=== PATIENT | female | born 1975 | race Caucasian/White ===

== ENCOUNTER 2019-11-27 08:39 | Inpatient (IN) | payer MEDICAID ==
[~2019-11-27] VITALS: Ht 162.6 cm; Wt 93.0 kg
[~2019-11-27 08:39] MED LIST: KEPP500 PO; NITR100C11 PO; PHEN100C12 PO
[2019-11-27] MEDS ORDERED: ONDANSETRON HCL 4MG/2ML INJ IV STA (09:10)
[2019-11-27] MEDS ORDERED: SODIUM CHLORIDE 0.9% 1,000 ML IV ONE (09:10)
[2019-11-27] MEDS ORDERED: FAMOTIDINE 20MG/2ML VIAL IV STA (09:10)
[2019-11-27] MEDS ORDERED: MORPHINE SULFATE 4 MG/ML CPJ (NOT FOR IM USE) IV STA (09:10)
[2019-11-27 09:40] LABS: BASOPHILS % 0.7 % (0.0-2.0); EOSINOPHILS % 3.5 % (0.0-5.0); HEMOGLOBIN. 13.2 g/dL (12.0-16.0); LYMPHOCYTES % 20.8 % (20.0-50.0); MEAN CORPUSCULAR HEMOGLOBIN 30.2 pg (28.0-32.0); MEAN CORPUSCULAR VOLUME 91.7 fL (81.0-99.0); MEAN PLATELET VOLUME 8.8 fl (7.4-10.4); MONOCYTES % 8.4 % (2.0-8.0); NEUTROPHILS % 66.6 % (40.0-76.0); PLATELET 174 x1000/uL (130-400); RED BLOOD CELL COUNT 4.36 mill/uL (4.2-5.4)
[2019-11-27 09:45] LABS: CHLORIDE 110 mEq/L (98-107)
[2019-11-27 09:48] LABS: PROTHROMBIN TIME 10.2 sec (9.6-11.0)
[2019-11-27 10:27] LABS: HCG SCREEN INDETERMINATE
[2019-11-27 11:19] LABS: CLARITY URINE CLEAR (CLEAR); COLOR URINE YELLOW (YELLOW); KETONES URINE NEGATIVE (NEGATIVE); LEUKOCYTE ESTERASE URINE NEGATIVE (NEGATIVE); NITRITE URINE NEGATIVE (NEGATIVE); OCCULT BLOOD URINE NEGATIVE (NEGATIVE); PROTEIN URINE NEGATIVE (NEGATIVE); SPECIFIC GRAVITY URINE 1.013 (1.005-1.030); UROBILINOGEN URINE 0.2 E.U./dL (0.2-1.0)
[2019-11-27] MEDS ORDERED: PIPERACILLIN/TAZ 3.375G PREMIX 50 ML IV ONE (12:15)
[2019-11-27] MEDS ORDERED: DOCUSATE SODIUM 250MG CAPSULE PO PRN (22:00)
[2019-11-27] MEDS: SODIUM CHLORIDE 0.9% 1,000 ML IV SCH (22:00)
[2019-11-27] MEDS ORDERED: ONDANSETRON HCL 4MG/2ML INJ IV PRN (22:00)
[2019-11-27] MEDS: PHENYTOIN SODIUM EXTENDED 100MG CAPSULE PO SCH (22:33)
[2019-11-27] MEDS: LEVETIRACETAM 500MG TABLET PO SCH (22:33)
[2019-11-28] VITALS (7 sets, daily range): BP systolic 119–135; BP diastolic 53–85
[2019-11-28] MEDS ORDERED: PIPERACILLIN/TAZ 3.375G PREMIX 50 ML IV SCH (02:00)
[2019-11-28] MEDS: PIPERACILLIN/TAZOBACTAM 3.375 G in DEXT 5% WATER 100 ML IV SCH ×3 (02:01→17:57)
[2019-11-28] MEDS: MORPHINE SULFATE 2 MG/ML CPJ (NOT FOR IM USE) IV PRN (05:50)
[2019-11-28] MEDS ORDERED: PIPERACILLIN/TAZOBACTAM 3.375 G/VIAL IV SCH (06:00)
[2019-11-28 06:46] LABS: BASOPHILS % 0.9 % (0.0-2.0); EOSINOPHILS % 4.2 % (0.0-5.0); HEMATOCRIT. 39.1 % (36.0-48.0); HEMOGLOBIN. 12.9 g/dL (12.0-16.0); LYMPHOCYTES % 29.6 % (20.0-50.0); MEAN CORPUSCULAR HEMOGLOBIN 30.2 pg (28.0-32.0); MEAN CORPUSCULAR VOLUME 91.5 fL (81.0-99.0); MEAN PLATELET VOLUME 9.3 fl (7.4-10.4); MONOCYTES % 9.6 % (2.0-8.0); NEUTROPHILS % 55.7 % (40.0-76.0); PLATELET 169 x1000/uL (130-400); RED BLOOD CELL COUNT 4.27 mill/uL (4.2-5.4); RED CELL DISTRIBUTION WIDTH 14.9 % (11.6-14.6)
[2019-11-28] MEDS: PHENYTOIN SODIUM EXTENDED 100MG CAPSULE PO SCH ×2 (09:20→17:57)
[2019-11-28] MEDS: LEVETIRACETAM 500MG TABLET PO SCH ×2 (09:21→17:57)
[2019-11-28] MEDS: SODIUM CHLORIDE 0.9% 1,000 ML IV SCH (18:34)
[2019-11-29] VITALS: BP 134/70
[2019-11-29 04:00] VITALS: BP 113/60
[2019-11-29] MEDS: PIPERACILLIN/TAZOBACTAM 3.375 G in DEXT 5% WATER 100 ML IV SCH ×2 (04:12→09:11)
[2019-11-29] MEDS: SODIUM CHLORIDE 0.9% 1,000 ML IV SCH (04:12)
[2019-11-29 08:00] VITALS: BP 134/77
[2019-11-29] MEDS: LEVETIRACETAM 500MG TABLET PO SCH (09:11)
[2019-11-29] MEDS: PHENYTOIN SODIUM EXTENDED 100MG CAPSULE PO SCH (09:11)
[2019-11-29] MEDS: MORPHINE SULFATE 2 MG/ML CPJ (NOT FOR IM USE) IV PRN (09:25)
[2019-11-29 12:00] VITALS: BP 121/71
[2019-11-29 12:03] VITALS: BP 121/71
== END 2019-11-29 13:00 | disposition home or self-care (01) ==
LOC: ER 09:04 → 6EST 13:30 → EDBEDREQ 13:32 → EDBEDREQSVC 13:32 → ENRESERV 20:00
PROVIDERS: ADMIT Internal Medicine; ATTEND Internal Medicine
DX: K80.42 Calculus of bile duct with acute cholecystitis without obstruction (principal); K59.00 Constipation, unspecified; Z68.35 Body mass index [BMI] 35.0-35.9, adult; G40.909 Epilepsy, unspecified, not intractable, without status epilepticus; F17.200 Nicotine dependence, unspecified, uncomplicated; E66.9 Obesity, unspecified; Z82.49 Family history of ischemic heart disease and other diseases of the circulatory system; Z86.718 Personal history of other venous thrombosis and embolism; Z79.899 Other long term (current) drug therapy; Z71.6 Tobacco abuse counseling; E87.8 Other disorders of electrolyte and fluid balance, not elsewhere classified; E44.1 Mild protein-calorie malnutrition
CPT/HCPCS: 36415; 71045; 74176; 76705; 78227; 80048; 80053; 81003; 83605; 84702; 84703; 85025; 93005; 93970; 96365; 99291; A9537; J2270; J2405; J2543; J3490; J7030; J7060